=== PATIENT | female | born 1970 ===

== ENCOUNTER → 2021-04-24 | Outpatient (CLI) | payer MEDICARE | LOC: COL.RAD 09:18 | DX: G35 Multiple sclerosis (principal) | CPT/HCPCS: A9585 ==

== ENCOUNTER → 2021-04-25 | Outpatient (CLI) | payer MEDICARE | LOC: COL.RAD 08:33 | DX: M48.04 Spinal stenosis, thoracic region (principal); G35 Multiple sclerosis | CPT/HCPCS: A9585 ==